=== PATIENT | male | born 1970 | race Caucasian/White ===

== ENCOUNTER 2019-10-10 12:52 | Outpatient (CLI) | payer MEDICAID, OTHER ==
[2019-10-10] MEDS ORDERED: ACET-1600 PO (13:13)
[2019-10-10] MEDS ORDERED: IBUP-1223 PO (13:13)
[2019-10-10 13:47] LABS: BASOPHILS # (AUTO) 0.05 x10^3/uL (0-0.1); BASOPHILS % (AUTO) 1 % (0-1); EOSINOPHILS # (AUTO) 0.34 x10^3/uL (0-0.4); EOSINOPHILS % (AUTO) 6 % (1-7); LYMPHOCYTES # (AUTO) 2.34 x10^3/uL (1-3.4); LYMPHOCYTES % (AUTO) 39 % (22-44); MD NO; MEAN CORPUSCULAR HEMOGLOBIN 31.7 pg (27.5-34.5); MEAN CORPUSCULAR HGB CONC 34.2 g/dL (33.2-36.2); MEAN CORPUSCULAR VOLUME 92.7 fL (81-97); MEAN PLATELET VOLUME 7.3 fL (7.4-10.4); MONOCYTES # (AUTO) 0.43 x10^3/uL (0.2-0.8); MONOCYTES % (AUTO) 7 % (2-9); NEUTROPHILS # (AUTO) 2.83 x10^3/uL (1.8-6.8); NEUTROPHILS % (AUTO) 47 % (42-75); PLATELET COUNT 272 x10^3/uL (130-400); RED BLOOD COUNT 4.96 x10^6/uL (4.38-5.82); RED CELL DISTRIBUTION WIDTH 12.8 % (9.4-14.8)
[2019-10-10 13:52] LABS: ANION GAP 4 mmol/L (5-15); CALCIUM 9.3 mg/dL (8.5-10.1); CHLORIDE 105 mmol/L (98-107); CREATININE 0.87 mg/dL (0.7-1.3)
[2019-10-10 13:53] LABS: MICROSCOPIC NOT IND
[2019-10-10 13:59] LABS: INTERNATIONAL NORMALIZED RATIO 0.97 (0.93-1.1); PROTHROMBIN TIME 10.2 Seconds (9.6-11.5)
== END 2019-10-10 23:59 | disposition home or self-care (01) ==
LOC: STAR 12:52
PROVIDERS: ATTEND Neurological Surgery
DX: Z01.818 Encounter for other preprocedural examination (principal); M51.36 Other intervertebral disc degeneration, lumbar region
CPT/HCPCS: 36415; 71046; 80048; 81003; 85025; 85610; 85730; 93005

== ENCOUNTER 2019-12-06 11:10 | Outpatient (CLI) | payer OTHER ==
[~2019-12-06 11:10] MED LIST: ACET-1600 PO; IBUP-1223 PO
[2019-12-06] MEDS ORDERED: oxycodone PO (11:34)
[2019-12-06] MEDS ORDERED: OXYC-306 PO (11:45)
[2019-12-06 12:10] LABS: MICROSCOPIC NOT IND
[2019-12-06 12:14] LABS: BASOPHILS # (AUTO) 0.03 x10^3/uL (0-0.1); BASOPHILS % (AUTO) 1 % (0-1); EOSINOPHILS # (AUTO) 0.31 x10^3/uL (0-0.4); EOSINOPHILS % (AUTO) 6 % (1-7); LYMPHOCYTES # (AUTO) 1.91 x10^3/uL (1-3.4); LYMPHOCYTES % (AUTO) 37 % (22-44); MD NO; MEAN CORPUSCULAR HEMOGLOBIN 31.4 pg (27.5-34.5); MEAN CORPUSCULAR HGB CONC 33.9 g/dL (33.2-36.2); MEAN CORPUSCULAR VOLUME 92.7 fL (81-97); MEAN PLATELET VOLUME 7.6 fL (7.4-10.4); MONOCYTES # (AUTO) 0.33 x10^3/uL (0.2-0.8); MONOCYTES % (AUTO) 6 % (2-9); NEUTROPHILS # (AUTO) 2.64 x10^3/uL (1.8-6.8); NEUTROPHILS % (AUTO) 51 % (42-75); PLATELET COUNT 272 x10^3/uL (130-400); RED BLOOD COUNT 5.01 x10^6/uL (4.38-5.82); RED CELL DISTRIBUTION WIDTH 12.8 % (9.4-14.8)
[2019-12-06 12:20] LABS: ANION GAP 5 mmol/L (5-15); CHLORIDE 107 mmol/L (98-107); CREATININE 0.86 mg/dL (0.7-1.3)
[2019-12-06 12:20] LABS: CULTURE INDICATED? NO
[2019-12-06 13:09] LABS: INTERNATIONAL NORMALIZED RATIO 0.96 (0.93-1.1); PROTHROMBIN TIME 10.2 Seconds (9.6-11.5)
== END 2019-12-06 23:59 | disposition home or self-care (01) ==
LOC: STAR 11:10
PROVIDERS: ATTEND Neurological Surgery
DX: Z01.818 Encounter for other preprocedural examination (principal); M51.36 Other intervertebral disc degeneration, lumbar region; M48.061 Spinal stenosis, lumbar region without neurogenic claudication
CPT/HCPCS: 36415; 80048; 81003; 85025; 85610; 85730

== ENCOUNTER → 2021-05-14 | Outpatient (CLI) | payer OTHER ==
[~2021-05-14] MED LIST changes: +CHLORHEXIDINE 15 ML UDC ONE; +OXYC1TAB16 PO; +OXYC5TAB2 PO; +oxycodone PO
[2021-05-14 11:32] LABS: MICROSCOPIC NOT IND
[2021-05-14 11:40] LABS: BASOPHILS % (AUTO) 1 % (0-1); EOSINOPHILS % (AUTO) 5 % (1-7); LYMPHOCYTES % (AUTO) 44 % (22-44); MEAN CORPUSCULAR HEMOGLOBIN 31.3 pg (27.5-34.5); MEAN CORPUSCULAR HGB CONC 34.8 g/dL (33.2-36.2); MONOCYTES % (AUTO) 8 % (2-9); NEUTROPHILS % (AUTO) 42 % (42-75); PLATELET COUNT 247 x10^3/uL (130-400); RED BLOOD COUNT 4.76 x10^6/uL (4.38-5.82); RED CELL DISTRIBUTION WIDTH 12.7 % (9.4-14.8)
[2021-05-14 11:45] LABS: INTERNATIONAL NORMALIZED RATIO 0.96 (0.93-1.1); PROTHROMBIN TIME 10.3 Seconds (9.6-11.5)
[2021-05-14 11:48] LABS: ANION GAP 4 mmol/L (5-15); CALCIUM 9.6 mg/dL (8.5-10.1); CHLORIDE 106 mmol/L (98-107)
[2021-05-14 11:52] LABS: CREATININE 0.86 mg/dL (0.7-1.3)
== END | disposition home or self-care (01) ==
LOC: STAR 08:00
PROVIDERS: ATTEND Neurological Surgery
DX: Z01.812 Encounter for preprocedural laboratory examination (principal); Z20.822 Contact with and (suspected) exposure to COVID-19; M48.061 Spinal stenosis, lumbar region without neurogenic claudication
CPT/HCPCS: 36415; 80048; 81003; 85025; 85610; 85730; U0003; U0005

== ENCOUNTER 2021-05-17 06:46 | Inpatient (IN) | payer OTHER ==
[~2021-05-17] VITALS: Ht 193 cm; Wt 94.5 kg
[~2021-05-17 06:46] MED LIST changes: +BUPIVACAINE/PF 0.25% ONE; -CHLORHEXIDINE 15 ML UDC ONE; +EPINEPHRINE 1 MG/ML, 1ML ONE; +GENTAMICIN 80 MG/2 ML ONE; -OXYC1TAB16 PO; +OXYC1TAB17 PO; +VANCOMYCIN 1,000 MG ONE; +methylPREDNISolone SOD SUCC 125 MG/2 ML ONE
[2021-05-17] MEDS ORDERED: LACTATED RINGERS 1,000 ML IV SCH (07:30)
[2021-05-17] MEDS ORDERED: CHLORHEXIDINE 15 ML UDC PO ONE (07:30)
[2021-05-17] MEDS ORDERED: ROCURONIUM 10MG/ML,5ML ONE (07:44)
[2021-05-17] MEDS ORDERED: DEXAMETHASONE 4 MG/ML, 1ML ONE ×2 (07:44)
[2021-05-17] MEDS ORDERED: MIDAZOLAM 1 MG/ML, 2ML ONE (07:44)
[2021-05-17] MEDS ORDERED: CEFAZOLIN 1,000 MG ONE ×2 (07:44)
[2021-05-17] MEDS ORDERED: LIDOCAINE-MPF 2% ,5ML ONE (07:44)
[2021-05-17] MEDS ORDERED: PROPOFOL 10 MG/ML, 20ML ONE (07:44)
[2021-05-17] MEDS ORDERED: ONDANSETRON 2MG/ML, 2ML ONE (07:44)
[2021-05-17] MEDS ORDERED: FENTANYL PF 250 MCG/5ML ONE (07:44)
[2021-05-17] MEDS ORDERED: SODIUM CHLORIDE 0.9% PF 10ML ONE (07:47)
[2021-05-17] MEDS ORDERED: ACETAMINOPHEN 325 MG TABLET PO PRN (09:30)
[2021-05-17] MEDS ORDERED: DIAZEPAM 5 MG/ML, 2ML IVPush PRN (09:30)
[2021-05-17] MEDS ORDERED: LABETALOL 5MG/ML, 20ML IV PRN (09:30)
[2021-05-17] MEDS ORDERED: MEPERIDINE/PF 25MG/0.5ML IVPush PRN (09:30)
[2021-05-17] MEDS ORDERED: METHOCARBAMOL 1,000 MG in DEXTROSE 5% 100 ML IV PRN (09:30)
[2021-05-17] MEDS ORDERED: ONDANSETRON 2MG/ML, 2ML IVPush PRN (09:30)
[2021-05-17] MEDS ORDERED: hydrALAzine 20 MG/ML, 1ML IV PRN (09:30)
[2021-05-17] MEDS ORDERED: HYDROmorphone 1 MG/ML, 1ML INJ IVPush PRN (09:30)
[2021-05-17] MEDS ORDERED: BUPIVACAINE/PF-EPI 0.25% 1:200K INFIL ONE (09:53)
[2021-05-17] MEDS ORDERED: FENTANYL PF 100 MCG/2ML ONE ×3 (10:22→11:31)
[2021-05-17] MEDS ORDERED: FENTANYL PF 100 MCG/2ML EPIDPUSH ONE (10:53)
[2021-05-17] MEDS: FENTANYL PF 100 MCG/2ML IV PRN ×4 (11:05→11:30)
[2021-05-17] MEDS ORDERED: BUPIVACAINE/PF 0.25% ONE (11:08)
[2021-05-17] MEDS ORDERED: OXYcodone 5 MG/5 ML ORAL.SOL UDC ONE (11:10)
[2021-05-17] MEDS ORDERED: ACETAMINOPHEN 650 MG/20.3 ML UDC ONE (11:14)
[2021-05-17] MEDS: OXYcodone 5 MG/5 ML ORAL.SOL UDC PO PRN ×2 (11:15→17:14)
[2021-05-17] MEDS ORDERED: HYDROmorphone 2 MG/ML, 1ML ONE ×2 (11:42→13:42)
[2021-05-17] MEDS: TIZANIDINE 4MG TABLET PO SCH ×2 (13:11→21:33)
[2021-05-17] MEDS ORDERED: DIPHENHYDRAMINE 25 MG CAPSULE PO PRN (18:30)
[2021-05-17] MEDS ORDERED: MAGNESIUM HYDROXIDE 8%, 30ML UDC PO PRN (18:30)
[2021-05-17] MEDS ORDERED: PROMETHAZINE 25 MG/ML, 1ML IM PRN (18:30)
[2021-05-17] MEDS ORDERED: HYDROmorphone 2 MG/ML, 1ML IVPush PRN (18:30)
[2021-05-17] MEDS ORDERED: DIPHENHYDRAMINE 50 MG/ML, 1ML IVPush PRN (18:30)
[2021-05-17] MEDS: NS + 20MEQ KCL 1,000 ML IV SCH (18:30)
[2021-05-17] MEDS ORDERED: ONDANSETRON 2MG/ML, 2ML IV PRN (18:30)
[2021-05-17] MEDS ORDERED: BISACODYL 10 MG SUPP PR PRN (18:30)
[2021-05-17 18:55] VITALS: BP 108/69
[2021-05-17] MEDS: CEFAZOLIN PMX 1GM/50ML 50 ML IVPB SCH (20:13)
[2021-05-17] MEDS: HYDROcodone/APAP 10/325 MG TABLET PO PRN (21:35)
[2021-05-18 00:11] VITALS: BP 112/63
[2021-05-18] MEDS: HYDROcodone/APAP 10/325 MG TABLET PO PRN ×3 (03:45→12:19)
[2021-05-18 03:56] VITALS: BP 116/71
[2021-05-18] MEDS: CEFAZOLIN PMX 1GM/50ML 50 ML IVPB SCH (04:10)
[2021-05-18] MEDS: NS + 20MEQ KCL 1,000 ML IV SCH (04:22)
[2021-05-18] MEDS: TIZANIDINE 4MG TABLET PO SCH ×2 (05:06→12:18)
[2021-05-18 08:34] VITALS: BP 98/56
[2021-05-18] MEDS ORDERED: SENNA/DOCUSATE TABLET PO SCH (09:00)
== END 2021-05-18 16:42 | disposition home or self-care (01) | DRG 517 ==
LOC: OUT 06:46 → MERGE 09:30 → 4NE 17:40 → OUT 19:55 → 4NE 20:34
PROVIDERS: ADMIT Neurological Surgery; ATTEND Neurological Surgery
PROC: 01NR0ZZ Release Sacral Nerve, Open Approach (ICD-10-PCS; 2021-05-17)
PROC: 01NB0ZZ Release Lumbar Nerve, Open Approach (ICD-10-PCS; principal; 2021-05-17 09:30)
DX: M48.061 Spinal stenosis, lumbar region without neurogenic claudication (principal); Z87.891 Personal history of nicotine dependence; Z88.0 Allergy status to penicillin; Z88.5 Allergy status to narcotic agent
CPT/HCPCS: 72100; J3490; G0378; J0171; J0690; J1100; J1170; J2250; J2405; J2704; J3010; J3370; J1580; J2800; J2930; J7120